=== PATIENT | female | born 1995 | race Caucasian/White ===

== ENCOUNTER 2019-12-22 07:30 | Emergency (ER) | payer BC, MEDICAID ==
[~2019-12-22] VITALS: Ht 157.5 cm; Wt 61.2 kg
[2019-12-22 07:43] VITALS: BP 125/62
[2019-12-22] MEDS ORDERED: cefTRIAXone SOD 1,000 MG VL IM ONE (09:00)
[2019-12-22] MEDS ORDERED: PHENAZOPYRIDINE HCL 100 MG TAB PO ONE (09:00)
== END 2019-12-22 09:20 | disposition home or self-care (01) ==
LOC: ER 07:30
DX: N39.0 Urinary tract infection, site not specified (principal)
CPT/HCPCS: 81002; 81025; 96372; 99283; J0696

== ENCOUNTER 2020-01-20 06:49 | Emergency (ER) | payer BC ==
[~2020-01-20] VITALS: Ht 157.5 cm; Wt 59.0 kg
[2020-01-20 07:16] VITALS: BP 129/74
[2020-01-20] MEDS ORDERED: cefTRIAXone SOD 1,000 MG VL IM ONE (07:45)
[2020-01-20] MEDS ORDERED: LIDOCAINE 1% HCL (LOCAL ANESTH.) INJ 20ML MDV IJ ONE (07:45)
[2020-01-20] MEDS ORDERED: IBUPROFEN 800 MG TAB PO ONE (07:45)
[2020-01-20] MEDS ORDERED: LIDOCAINE 1% HCL (LOCAL ANESTH.) INJ 20ML MDV ONE (07:49)
== END 2020-01-20 08:27 | disposition home or self-care (01) ==
LOC: ER 06:49
DX: K04.7 Periapical abscess without sinus (principal)
CPT/HCPCS: 96372; 99283; J0696; J2001